=== PATIENT | male | born 1985 | race African-American/Black ===

== ENCOUNTER 2017-09-30 00:39 | Emergency (ER) | payer OTHER ==
[~2017-09-30] VITALS: Ht 167.6 cm; Wt 60.3 kg
[~2017-09-30 00:39] MED LIST: MEDROL DOSEPAK4 MG PO
[2017-09-30 01:20] LABS: HEMATOCRIT 38.6 % (38.0-50.0); MCH 32.4 PG (29.0-34.0); MCHC 33.7 G/DL (30.0-36.0); MCV 96.3 FL (86-99); MEAN PLAT.VOLUME 8.9 uM^3 (9.0-12.4); PLATELET COUNT 310 K/uL (156-360); RBC DIS.WIDTH-CV 11.8 % (11.8-14.6); RED BLOOD COUNT 4.01 M/uL (4.00-5.50); WHITE BLOOD COUNT 11.4 K/uL (4.1-10.2)
[2017-09-30 01:30] LABS: CHLORIDE 105 mEq/L (99-109); POTASSIUM 4.3 mEq/L (3.7-5.4); SODIUM 138 mEq/L (136-147)
[2017-09-30 01:32] LABS: GLUCOSE 104 mg/dL (70-99)
[2017-09-30 01:33] LABS: ANION GAP 5 MEQ/L (2-14)
[2017-09-30 01:34] LABS: TOTAL BILIRUBIN 0.2 mg/dL (0.0-1.0)
[2017-09-30 01:36] LABS: ALKALINE PHOSPHATASE 77 IU/L (3-129); GFR ESTIMATE (CALCULATED) > 59 mL/min/ (58.99-99999)
[2017-09-30 01:37] LABS: UREA NITROGEN (BUN) 16 mg/dL (9-23)
[2017-09-30 01:40] LABS: TROP-I INTERPRETATION NEGATIVE; TROPONIN-I < 0.01 ng/mL (0.0-0.30)
[2017-09-30 02:27] VITALS: BP 121/82
== END 2017-09-30 02:30 | disposition home or self-care (01) ==
LOC: EME 00:39
PROVIDERS: Physician Assistant
DX: R07.89 Other chest pain (principal); M54.9 Dorsalgia, unspecified; F17.200 Nicotine dependence, unspecified, uncomplicated
CPT/HCPCS: 71020; 80053; 84484; 85027; 85379; 93005; 99281; 99285; J1885